=== PATIENT | female | born 1975 | race Caucasian/White ===

== ENCOUNTER 2017-01-01 20:51 | Emergency (ER) | payer OTHER ==
--- NOTE | 2017-01-01 20:56 | PDOC ---
History of Present Illness - General History Source: Patient Exam Limitations: No Limitations - History of Present Illness Initial Comments: 01/01/17 21:26 A portion of this note was documented by scribe services under my direction. I have reviewed the details of the note, within reason, and agree with the documentation. The case summary and management plan written by me. Rapid strep negative Assessment and plan: This is a 41-year-old female who comes in complaining of a sore throat with a small amount of exudate on her uvula. Patient had a rapid strep done that was negative. Patient discharged and told to take ibuprofen for the pain and follow-up with her primary care doctor as needed. 01/01/17 21:28 <Kelvin Tolentino I - Last Filed: 01/01/17 21:26> - General History Source: Patient Exam Limitations: No Limitations - History of Present Illness Initial Comments: 01/01/17 21:22 The patient is a 41 year old female with no significant past medical history, who presents to the ED with a white spot on the back of throat and a mild headache that began today. She states she had been feeling normal but her PCP Dr. Blandon sent her to be swabbed. She denies recent travels, sick contacts. Patient denies fever, chills, nausea, vomiting, diarrhea. PAST MEDICAL HISTORY: no significant history PAST SURGICAL HISTORY: no significant history FAMILY HISTORY: no pertinent history SOCIAL HISTORY: Pt lives with family and is employed. MEDICATIONS: reviewed ALLERGIES: As per nursing notes ROS General: No fevers or chills, no weakness, no weight loss HEENT: No change in vision. No sore throat,. No ear pain CardioVascular: No chest pain or shortness of breath Respiratory:No cough, or wheezing. Gastrointestinal: no nausea, vomiting, diarrhea or constipation, No rectal bleeding Genitourinary: No dysuria, hematuria, or frequency Musculoskeletal: No joint or muscle pain or swelling Neurologic: + headache. No vertigo, dizziness or loss of consciousness Psychiatric: nor depression Skin: No rashes or easy bruising Endocrine: no increased thirst or abnormal weight change Allergic: no skin or latex allergy All other systems reviewed and normal PE General: Well-nourished well-developed individual, no acute distress HEENT: Throat: Posterior oropharynx has mild erythema. Small exudates on anterior portion of the uvula. No edema of the uvula. No lymphopathy. Neck: Supple, no meningeal signs, no lymphadenopathy Eyes:Pupils equal reactive and round, extraocular motion intact Chest: Nontender to palpation Cardiac: S1-S2 normal, regular rate and rhythm, no murmurs rubs or gallops Respiratory: Lungs clear to auscultation bilateral Abdomen: Soft, nondistended, normal bowel sounds, nontender to palpation diffusely Extremities: Warm, dry, no cyanosis, clubbing, or edema Skin: No rashes Neuro: Alert and oriented x3, nonfocal exam, grossly intact, normal gait Psych: Normal mood and affect <Darek Clark - Last Filed: 01/01/17 21:32> - General Chief Complaint: Pain Stated Complaint: WHITE PATCH ON THROAT Time Seen by Provider: 01/01/17 20:55 Past History <Kelvin Tolentino I - Last Filed: 01/01/17 21:26> <Darek Clark - Last Filed: 01/01/17 21:32> - Past Medical History Allergies/Adverse Reactions: Allergies Allergy/AdvReac Type Severity Reaction Status Date / Time No Known Allergies Allergy Unverified 01/01/17 20:55 Home Medications: Ambulatory Orders NK [No Known Home Medication] 01/01/17 *Physical Exam - Vital Signs Last Vital Signs Temp Pulse Resp BP Pulse Ox 98.3 F 70 16 120/80 100 01/01/17 20:56 01/01/17 20:56 01/01/17 20:56 01/01/17 20:56 01/01/17 20:56 <Darek Clark - Last Filed: 01/01/17 21:32> ED Treatment Course - ADDITIONAL ORDERS Additional order review: 01/01/17 21:00 Group A Strep Rapid Antigen - Final Throat NEGATIVE FOR THE ANTIGEN OF BETA HEMOLYTIC STREP GROUP A <Darek Clark - Last Filed: 01/01/17 21:32> *DC/Admit/Observation/Transfer - Discharge Dispostion Admit: No <Kelvin Tolentino I - Last Filed: 01/01/17 21:26> - Attestations Scribe Attestion: 01/01/17 21:24 Documentation prepared by Darek Clark, acting as medical device for Kelvin Tolentino MD. <Darek Clark - Last Filed: 01/01/17 21:32> Diagnosis at time of Disposition: Acute viral pharyngitis - Discharge Dispostion Disposition: HOME Condition at time of disposition: Stable - Patient Instructions Additional Instructions: Tylenol or Motrin as needed for pain. Return to the emergency department immediately with ANY new, persistent or worsening symptoms. Continue any medications as previously prescribed by your physician. You should follow up with your primary doctor as soon as possible regarding today's emergency department visit. . Please make sure your doctor reviews the results of your emergency evaluation. Thank you for coming to the Emergency Department today for your care. It was a pleasure to see you today. Please note that your evaluation is INCOMPLETE until you follow-up with your doctor.
[2017-01-01 21:00] VITALS: BP 120/80; PULSE 70; TEMP 98.3; BMI 21.9
[2017-01-01] MEDS: diazePAM 5 MG TABLET PO ONE ×2 (21:18→21:25)
[2017-01-01] MEDS: KETOROLAC TROMETHAMINE 60 MG/2 ML VIAL IM ONE ×2 (21:18→21:25)
[2017-01-01] MEDS ORDERED: IBUPROFEN 400 MG TABLET (FP) PO ONE ×2 (21:29→21:44)
== END 2017-01-01 21:48 | disposition home or self-care (01) ==
LOC: FER 20:51
DX: J02.8 Acute pharyngitis due to other specified organisms (principal); B97.89 Other viral agents as the cause of diseases classified elsewhere
CPT/HCPCS: 87070; 87430; 99281-25